=== PATIENT | female | born 1985 | race African-American/Black ===

== ENCOUNTER 2017-09-28 12:50 | Outpatient (CLI) | payer OTHER | END 2017-09-28 15:20 | disposition home or self-care (01) | LOC: OBT 12:50 → L-D 12:51 → OBT 15:20 | DX: O48.0 Post-term pregnancy (principal); Z3A.40 40 weeks gestation of pregnancy | CPT/HCPCS: 76818 ==

== ENCOUNTER 2017-09-29 23:35 | Inpatient (IN) | payer OTHER ==
[2017-09-30] MEDS ORDERED: LIDOCAINE 1% (MPF) 30 ML INJ INJ (00:30)
[2017-09-30] MEDS ORDERED: MISOPROSTOL 200 MCG TAB PR (00:30)
[2017-09-30] MEDS ORDERED: CARBOPROST 250 MCG INJ IM (00:30)
[2017-09-30] MEDS ORDERED: IBUPROFEN 600 MG TAB PO (00:30)
[2017-09-30] MEDS ORDERED: OXYTOCIN 30 UNITS/LR 500 ML IV (00:30)
[2017-09-30] MEDS ORDERED: METHYLERGONOVINE 0.2 MG INJ IM (00:30)
[2017-09-30 00:39] LABS: ADD MAN DIFF? NO
[2017-09-30 00:42] LABS: BASOPHILS % 0.4 % (0.0-2.0); EOSINOPHILS % 0.5 % (0.0-7.0); HEMATOCRIT 31.3 % (37.0-47.0); HEMOGLOBIN 10.9 g/dl (12.0-16.0); LYMPHOCYTES # 1.4 10^3/ul (0.8-2.9); LYMPHOCYTES % 18.4 % (15.0-51.0); MEAN CORPUSCULAR HEMOGLOBIN 27.7 pg (29.0-33.0); MEAN CORPUSCULAR HGB CONC 34.8 g/dl (32.0-37.0); MEAN CORPUSCULAR VOLUME 79.6 fl (82.0-101.0); MEAN PLATELET VOLUME 12.3 fl (7.4-10.4); MONOCYTE # 0.8 10^3/ul (0.3-0.9); MONOCYTES % 10.1 % (0.0-11.0); NEUTROPHIL # 5.4 10^3/ul (1.6-7.5); NEUTROPHILS % 69.2 % (39.0-77.0); PLATELET COUNT 145 10^3/UL (140-415); RED BLOOD COUNT 3.93 10^6/ul (4.20-5.40); RED CELL DISTRIBUTION WIDTH 12.5 % (11.5-14.5)
[2017-09-30 00:42] LABS: WHITE BLOOD COUNT 7.8 10^3/ul (4.8-10.8)
[2017-09-30 00:56] LABS: INR 0.88; PARTIAL THROMBOPLASTIN TIME 23.5 Sec (25.0-35.0); PT RATIO 0.9
[2017-09-30] MEDS: LACTATED RINGER'S 1,000 ML IV ×3 (00:59→18:18)
[2017-09-30] MEDS ORDERED: MINERAL OIL LIGHT 10 ML VIAL TOP (08:00)
[2017-09-30] MEDS: MISOPROSTOL 25 MCG CAPSULE PO ×3 (11:52→21:20)
[2017-09-30] MEDS ORDERED: MISOPROSTOL 25 MCG CAPSULE PO (13:00)
[2017-09-30 15:04] LABS: RAPID PLASMA REAGIN NONREACTIVE (NR)
[2017-09-30 15:48] LABS: HEPATITIS B SURFACE ANTIGEN NEGATIVE (NEGATIVE)
[2017-10-01] MEDS: LACTATED RINGER'S 1,000 ML IV ×4 (00:23→08:43)
[2017-10-01] MEDS: OXYTOCIN 30 UNITS/LR 500 ML IV ×3 (05:00→14:55)
[2017-10-01] MEDS: BUTORPHANOL 2 MG INJ IV (06:22)
[2017-10-01] MEDS ORDERED: FENTAnyl 2MCG/ML-ROPIV 0.2% 100 ML (08:15)
[2017-10-01] MEDS ORDERED: DIPHENHYDRAMINE 50 MG INJ IV (09:00)
[2017-10-01] MEDS ORDERED: ONDANSETRON 4 MG INJ IV (09:00)
[2017-10-01] MEDS ORDERED: NALOXONE (0.4 MG/ML) INJ IV (09:00)
[2017-10-01] MEDS: FENTAnyl 2MCG/ML-ROPIV 0.2% 100 ML BAG EPI (09:23)
[2017-10-01] MEDS: LACTATED RINGER'S 1,000 ML IV* (16:23)
[2017-10-01] MEDS ORDERED: DIBUCAINE 1% 30 GM OINT PR (16:30)
[2017-10-01] MEDS ORDERED: MISOPROSTOL 200 MCG TAB PR (16:30)
[2017-10-01] MEDS ORDERED: METHYLERGONOVINE 0.2 MG INJ IM (16:30)
[2017-10-01] MEDS ORDERED: OXYTOCIN 30 UNITS/LR 500 ML IV (16:30)
[2017-10-01] MEDS ORDERED: HYDROCODONE/APAP (5/325) TAB PO (16:30)
[2017-10-01] MEDS ORDERED: ZOLPIDEM 5 MG TAB PO (16:30)
[2017-10-01] MEDS ORDERED: CARBOPROST 250 MCG INJ IM (16:30)
[2017-10-01] MEDS: IBUPROFEN 600 MG TAB PO ×2 (17:46→23:26)
[2017-10-01] MEDS: BENZOCAINE 20% 56 ML SPRAY TOP (17:47)
[2017-10-01] MEDS: LANOLIN 7 GM TUBE TOP (17:47)
[2017-10-01] MEDS: CEPHALEXIN 500 MG CAP PO ×2 (17:47→23:26)
[2017-10-01] MEDS: WITCH HAZEL/GLYCERIN PAD PR (17:47)
[2017-10-01] MEDS: SENNA/DOCUSATE NA (8.6MG/50MG) TAB PO (21:05)
[2017-10-01] MEDS: MAGNESIUM HYDROXIDE 30ML CUP PO (21:05)
[2017-10-02] MEDS: LACTATED RINGER'S 1,000 ML IV* (00:23)
[2017-10-02] MEDS: HYDROCODONE/APAP (5/325) TAB PO ×2 (04:07→11:48)
[2017-10-02] MEDS: CEPHALEXIN 500 MG CAP PO ×4 (05:27→23:29)
[2017-10-02] MEDS: IBUPROFEN 600 MG TAB PO ×4 (06:00→23:27)
[2017-10-02 09:23] LABS: HEMATOCRIT 32.2 % (37.0-47.0)
[2017-10-02] MEDS: MAGNESIUM HYDROXIDE 30ML CUP PO ×2 (09:58→21:44)
[2017-10-02] MEDS: SENNA/DOCUSATE NA (8.6MG/50MG) TAB PO ×2 (09:58→21:44)
[2017-10-02] MEDS: BENZOCAINE 20% 56 ML SPRAY TOP (18:40)
[2017-10-02] MEDS: WITCH HAZEL/GLYCERIN PAD PR (18:40)
[2017-10-03] MEDS: IBUPROFEN 600 MG TAB PO ×2 (06:12→12:16)
[2017-10-03] MEDS: CEPHALEXIN 500 MG CAP PO ×2 (06:12→12:16)
[2017-10-03 09:03] LABS: ADD MAN DIFF? NO
[2017-10-03 09:07] LABS: WHITE BLOOD COUNT 6.8 10^3/ul (4.8-10.8)
[2017-10-03 09:07] LABS: BASOPHILS % 0.4 % (0.0-2.0); EOSINOPHILS # 0.1 10^3/ul (0.0-0.5); EOSINOPHILS % 1.8 % (0.0-7.0); HEMATOCRIT 32.4 % (37.0-47.0); LYMPHOCYTES # 1.2 10^3/ul (0.8-2.9); LYMPHOCYTES % 18.2 % (15.0-51.0); MEAN CORPUSCULAR HEMOGLOBIN 27.7 pg (29.0-33.0); MEAN CORPUSCULAR VOLUME 81.6 fl (82.0-101.0); MEAN PLATELET VOLUME 12.8 fl (7.4-10.4); MONOCYTE # 0.6 10^3/ul (0.3-0.9); MONOCYTES % 9.4 % (0.0-11.0); NEUTROPHIL # 4.8 10^3/ul (1.6-7.5); NEUTROPHILS % 69.5 % (39.0-77.0); PLATELET COUNT 147 10^3/UL (140-415); RED BLOOD COUNT 3.97 10^6/ul (4.20-5.40); RED CELL DISTRIBUTION WIDTH 12.8 % (11.5-14.5)
[2017-10-03] MEDS: MAGNESIUM HYDROXIDE 30ML CUP PO (09:28)
[2017-10-03] MEDS: SENNA/DOCUSATE NA (8.6MG/50MG) TAB PO (09:28)
[2017-10-03] MEDS: MEASLES,MUMPS,RUBELLA VACCINE INJ SC* (09:28)
[2017-10-03] MEDS: VARICELLA VACCINE LIVE/PF 1,350 UNIT/0.5 ML ML SC* (09:29)
[2017-10-03] MEDS: DIPHTH/TET/ACEL PERTUSS (ADULT) 0.5 ML VIAL IM* (09:29)
== END 2017-10-03 13:15 | disposition home or self-care (01) | DRG 775 ==
LOC: OBT 23:35 → L-D 23:35 → PP1 10-01 16:05
PROVIDERS: Obstetrics & Gynecology
PROC: 10E0XZZ Delivery of Products of Conception, External Approach (ICD-10-PCS; principal; 2017-10-01)
PROC: 3E033VJ Introduction of Other Hormone into Peripheral Vein, Percutaneous Approach (ICD-10-PCS; 2017-10-01)
DX: O48.0 Post-term pregnancy (principal); O69.81X0 Labor and delivery complicated by cord around neck, without compression, not applicable or unspecified; Z3A.40 40 weeks gestation of pregnancy; Z37.0 Single live birth
CPT/HCPCS: 62319; 85014; 85018; 85025; 85610; 85730; 86592; 86900; 86901; 87340

== ENCOUNTER 2018-04-18 13:14 | Emergency (ER) | payer SELFPAY, OTHER ==
[2018-04-18] MEDS: IBUPROFEN 800 MG TAB PO (13:41)
== END 2018-04-18 13:55 | disposition home or self-care (01) ==
LOC: FTE 13:14
DX: K08.9 Disorder of teeth and supporting structures, unspecified (principal)
CPT/HCPCS: 99283